=== PATIENT | male | born 1965 | race Caucasian/White ===

== ENCOUNTER 2021-04-13 17:49 | Emergency (ER) | payer MEDICAID ==
[~2021-04-13] VITALS: Ht 182.9 cm; Wt 81.8 kg
[~2021-04-13 17:49] MED LIST: NO HOME MEDS
[2021-04-13 18:29] VITALS: BP 133/81
== END 2021-04-13 19:16 | disposition left against medical advice (07) ==
LOC: ER 17:49
DX: M25.561 Pain in right knee (principal); R06.02 Shortness of breath; F41.9 Anxiety disorder, unspecified; Z53.21 Procedure and treatment not carried out due to patient leaving prior to being seen by health care provider

== ENCOUNTER 2021-04-15 12:17 | Emergency (ER) | payer MEDICAID ==
[~2021-04-15] VITALS: Ht 182.9 cm; Wt 75.4 kg
[~2021-04-15 12:17] MED LIST changes: +LIDOcaine 1% W/epiNEPHrine 1:100,000 20ml vial ONE
[2021-04-15 12:34] VITALS: BP 111/81
[2021-04-15] MEDS ORDERED: SULF1TAB49 PO (16:55)
[2021-04-15] MEDS ORDERED: CEPH-585 PO (16:55)
== END 2021-04-15 17:04 | disposition home or self-care (01) ==
LOC: ER 12:17
DX: L02.415 Cutaneous abscess of right lower limb (principal); M25.561 Pain in right knee; F12.90 Cannabis use, unspecified, uncomplicated; Z72.89 Other problems related to lifestyle; Z56.0 Unemployment, unspecified; Z98.890 Other specified postprocedural states; Z79.2 Long term (current) use of antibiotics
CPT/HCPCS: 10060; 99283